=== PATIENT | male | born 1955 | race Caucasian/White ===

== ENCOUNTER 2021-11-17 22:28 | Inpatient (IN) | payer OTHER ==
[~2021-11-17] VITALS: Ht 182.9 cm; Wt 114.8 kg
[2021-11-17] MEDS ORDERED: HYDROCODONE/ACETAMINOPHEN 5/325MG TABLET PO STA (22:41)
[2021-11-17] MEDS ORDERED: ONDANSETRON 4MG ODT PO STA (22:41)
[2021-11-18 00:40] LABS: HEMATOCRIT. 44.1 % (42.0-52.0); HEMOGLOBIN. 15.3 g/dL (14.0-18.0); MEAN CORPUSCULAR HEMOGLOBIN 37.7 pg (28.0-32.0); MEAN CORPUSCULAR VOLUME 108.3 fL (80.0-94.0); MEAN PLATELET VOLUME 8.6 fl (7.4-10.4); PLATELET 239 x1000/uL (130-400); RED BLOOD CELL COUNT 4.07 mill/uL (4.7-6.1); RED CELL DISTRIBUTION WIDTH 15.8 % (11.6-14.6)
[2021-11-18 00:46] LABS: CHLORIDE 107 mEq/L (98-107)
[2021-11-18 00:51] LABS: PLATELET ESTIMATE NORMAL
[2021-11-18] MEDS ORDERED: KETOROLAC 30MG/ML VIAL IV PRN (13:30)
[2021-11-18] MEDS ORDERED: ZOLPIDEM TARTRATE 5MG TABLET PO PRN (13:30)
[2021-11-18] MEDS ORDERED: CLONIDINE 0.1MG TABLET PO PRN (13:30)
[2021-11-18] MEDS ORDERED: DOCUSATE SODIUM 100MG CAPSULE PO PRN (13:30)
[2021-11-18] MEDS ORDERED: NITROGLYCERIN 0.4MG TABLET SL SL PRN (13:30)
[2021-11-18] MEDS ORDERED: ONDANSETRON HCL 4MG/2ML INJ IV PRN (13:30)
[2021-11-18] MEDS ORDERED: IPRATROPIUM/ALBUTEROL 0.5-3(2.5)MG/3ML NEB NEB PRN (13:30)
[2021-11-18] MEDS ORDERED: MAGNESIUM/ALUMINUM HYDROXIDE/SIMETHICONE 30ML UDC PO PRN (13:30)
[2021-11-18] MEDS ORDERED: ACETAMINOPHEN 325MG TABLET PO PRN ×2 (13:30)
[2021-11-18] MEDS ORDERED: GUAIFENESIN 200MG/10ML SUGAR FREE UDC PO PRN (13:30)
[2021-11-18] MEDS: ENOXAPARIN 40MG/0.4ML SYR SUBCUT SCH (15:10)
[2021-11-18 15:40] VITALS: BP 118/75
[2021-11-18 18:03] LABS: ETHANOL BLOOD < 10 mg/dL; T4 FREE 1.19 ng/dL (0.76-1.46); TOTAL IRON BINDING CAPACITY 215 ug/dL (250-450)
[2021-11-18 18:15] LABS: VITAMIN B12 SERUM < 60 pg/mL (211-911)
[2021-11-18 20:00] VITALS: BP 97/60
[2021-11-19] VITALS: BP 90/46
[2021-11-19 04:00] VITALS: BP 98/62
[2021-11-19 08:00] VITALS: BP 103/67
[2021-11-19 08:12] LABS: BASOPHILS % 0.4 % (0.0-2.0); EOSINOPHILS % 2.9 % (0.0-5.0); HEMATOCRIT. 38.8 % (42.0-52.0); HEMOGLOBIN. 13.6 g/dL (14.0-18.0); LYMPHOCYTES % 17.8 % (20.0-50.0); MEAN CORPUSCULAR VOLUME 108.7 fL (80.0-94.0); NEUTROPHILS % 70.9 % (40.0-76.0); PLATELET 178 x1000/uL (130-400); RED BLOOD CELL COUNT 3.57 mill/uL (4.7-6.1); RED CELL DISTRIBUTION WIDTH 15.7 % (11.6-14.6)
[2021-11-19 08:20] LABS: CHLORIDE 105 mEq/L (98-107)
[2021-11-19 08:31] LABS: HDL CHOLESTEROL 26 mg/dL (40-59); LDL CHOLESTEROL 109 mg/dL (5-100); PHOSPHORUS 1.9 mg/dL (2.5-4.9)
[2021-11-19] MEDS: PANTOPRAZOLE SODIUM 40 MG/VIAL IV SCH (11:00)
[2021-11-19 12:00] VITALS: BP 100/60
[2021-11-19] MEDS ORDERED: POTASSIUM PHOS,M-BASIC-D-BASIC 30 MMOL in SODIUM CHLORIDE 0.9% 500 ML IV ONE (13:00)
[2021-11-19] MEDS ORDERED: CYANOCOBALAMIN 1000MCG/ML VIAL IM SCH (13:00)
[2021-11-19 15:44] LABS: *AMPHETAMINES SCREEN URINE NEGATIVE (NEGATIVE); *BARBITURATES SCREEN URINE NEGATIVE (NEGATIVE); *BENZODIAZEPINES SCREEN URINE NEGATIVE (NEGATIVE); *COCAINE SCREEN URINE NEGATIVE (NEGATIVE); CANNABINOID URINE SCREEN NEGATIVE (NEGATIVE); METHADONE URINE SCREEN NEGATIVE (NEGATIVE); OPIATES URINE SCREEN NEGATIVE (NEGATIVE); PHENCYCLIDINE URINE SCREEN NEGATIVE (NEGATIVE)
[2021-11-19 16:00] VITALS: BP 101/62
[2021-11-19] MEDS: ENOXAPARIN 40MG/0.4ML SYR SUBCUT SCH (18:54)
[2021-11-19 20:00] VITALS: BP 103/62
[2021-11-19] MEDS: CYANOCOBALAMIN 1000MCG/ML VIAL IM SCH (21:30)
[2021-11-20 04:00] VITALS: BP 100/60
[2021-11-20 08:00] VITALS: BP 100/65
[2021-11-20] MEDS: CYANOCOBALAMIN 1000MCG/ML VIAL IM SCH (08:16)
[2021-11-20 08:32] LABS: BASOPHILS % 0.6 % (0.0-2.0); EOSINOPHILS % 3.6 % (0.0-5.0); HEMOGLOBIN. 13.1 g/dL (14.0-18.0); LYMPHOCYTES % 28.5 % (20.0-50.0); MEAN CORPUSCULAR HEMOGLOBIN 36.9 pg (28.0-32.0); MEAN CORPUSCULAR VOLUME 109.6 fL (80.0-94.0); MONOCYTES % 8.6 % (2.0-8.0); NEUTROPHILS % 58.7 % (40.0-76.0); PLATELET 175 x1000/uL (130-400); RED BLOOD CELL COUNT 3.55 mill/uL (4.7-6.1); RED CELL DISTRIBUTION WIDTH 15.3 % (11.6-14.6)
[2021-11-20 09:15] LABS: CHLORIDE 104 mEq/L (98-107)
[2021-11-20 09:23] LABS: PHOSPHORUS 3.7 mg/dL (2.5-4.9)
[2021-11-20] MEDS: PANTOPRAZOLE SODIUM 40 MG/VIAL IV SCH (09:47)
[2021-11-20] MEDS ORDERED: FAMO-135 MT (11:55)
[2021-11-20] MEDS ORDERED: CYAN100096 MT (11:55)
[2021-11-20 12:00] VITALS: BP 98/66
[2021-11-20 14:14] VITALS: BP 99/66
[2021-11-20 16:00] VITALS: BP 109/68
[2021-11-20] MEDS ORDERED: ENOXAPARIN 30MG/0.3ML SYR SUBCUT SCH (21:00)
[2021-11-29] MEDS ORDERED: CYANOCOBALAMIN 1000MCG/ML VIAL IM SCH (09:00)
[2022-01-03] MEDS ORDERED: CYANOCOBALAMIN 1000MCG/ML VIAL IM ONE (21:15)
== END 2021-11-20 18:06 | disposition home or self-care (01) | DRG 446 ==
LOC: ER 22:28 → 6EST 11-18 06:43 → ENRESERV 11-18 09:49 → ER 11-18 12:00 → 6EST 11-18 12:11
PROVIDERS: ADMIT Internal Medicine; ATTEND Internal Medicine
DX: K80.50 Calculus of bile duct without cholangitis or cholecystitis without obstruction (principal); E53.8 Deficiency of other specified B group vitamins; D53.9 Nutritional anemia, unspecified; K82.8 Other specified diseases of gallbladder; F17.210 Nicotine dependence, cigarettes, uncomplicated; Z59.01 Sheltered homelessness
CPT/HCPCS: 36415; 71045; 74176; 76705; 80048; 80053; 80061; 80305; 80320; 82607; 83036; 83540; 83550; 83735; 84100; 84439; 84443; 85025; 93005; 93970; 99285; C9113; J1650; J2405; J3420; J3490; J7040; G0480